=== PATIENT | male | born 1950 | race Caucasian/White ===

== ENCOUNTER 2019-06-11 12:05 | Emergency (ER) | payer MEDICARE ==
[~2019-06-11] VITALS: Ht 180.3 cm; Wt 84.6 kg
[~2019-06-11 12:05] MED LIST: ALBU8HFA PO; BUDE10.2 INH; GUAI100L97 PO; LISI-600 PO
[2019-06-11] MEDS ORDERED: ipratropium/albuterol 3ml nebule NEB ONE (13:45)
[2019-06-11] MEDS ORDERED: predniSONE 20 mg tablet PO ONE (13:45)
[2019-06-11] MEDS ORDERED: azithromycin 250mg tablet PO ONE (13:50)
[2019-06-11 14:15] LABS: BASOPHILS # (AUTO) 0.1 X10'3 (0-0.2); BASOPHILS % (AUTO) 0.8 % (0-1); EOSINOPHILS # (AUTO) 0.3 X10'3 (0-0.9); HEMATOCRIT 48.3 % (42.0-52.0); HEMOGLOBIN 16.5 g/dl (14.0-17.9); LYMPHOCYTES # (AUTO) 2.1 X10'3 (1.1-4.8); LYMPHOCYTES % (AUTO) 15.6 % (21-51); MEAN CORPUSCULAR HEMOGLOBIN 30.3 PG (27.0-31.0); MEAN CORPUSCULAR HGB CONC 34.1 g/dL (33.0-36.5); MEAN CORPUSCULAR VOLUME 88.6 FL (78-98); MEAN PLATELET VOLUME 7.6 FL (7.4-10.4); MONOCYTES # (AUTO) 1.3 X10'3 (0-0.9); MONOCYTES % (AUTO) 9.6 % (2-12); NEUTROPHILS # (AUTO) 9.7 X10'3 (1.8-7.7); PLATELET COUNT 334 X10'3 (140-440); RED BLOOD COUNT 5.45 X10'6 (4.70-6.10); RED CELL DISTRIBUTION WIDTH 14.2 % (11.5-14.5); WHITE BLOOD COUNT 13.5 X10'3 (4.5-11.0)
[2019-06-11 14:28] LABS: ALANINE AMINOTRANSFERASE 40 U/L (12-78); ALBUMIN 4.4 G/DL (3.4-5.0); ALKALINE PHOSPHATASE 165 IU/L (46-116); ANION GAP 7 (8-16); ASPARTATE AMINO TRANSFERASE 24 U/L (10-37); BILIRUBIN,TOTAL 0.6 MG/DL (0.1-1.0); BLOOD UREA NITROGEN 16 MG/DL (7-18); CHLORIDE 103 MMOL/L (99-107); CREATININE 1.07 MG/DL (0.60-1.10); GLUCOSE 103 MG/DL (70-104); POTASSIUM 4.5 MMOL/L (3.5-5.1); SODIUM 141 MMOL/L (135-145); TOTAL CARBON DIOXIDE 31.5 MMOL/L (24-32); TOTAL PROTEIN 8.9 G/DL (6.4-8.2); eGFR 69 ML/MIN
[2019-06-11] MEDS ORDERED: AZIT-72 PO (14:32)
[2019-06-11] MEDS ORDERED: ALB0.5UD IH (14:32)
[2019-06-11] MEDS ORDERED: PRED20TA PO (14:32)
[2019-06-11 15:13] VITALS: BP 170/84
== END 2019-06-11 15:14 | disposition home or self-care (01) ==
LOC: ER 12:05
DX: J44.1 Chronic obstructive pulmonary disease with (acute) exacerbation (principal); G89.29 Other chronic pain; Z87.891 Personal history of nicotine dependence; Z88.0 Allergy status to penicillin; Z98.890 Other specified postprocedural states; Z88.8 Allergy status to other drugs, medicaments and biological substances; Z79.2 Long term (current) use of antibiotics; Z79.899 Other long term (current) drug therapy
CPT/HCPCS: 36415; 71045; 80053; 83880; 84484; 85025; 93005; 94640; 99284; J7512; 94760

== ENCOUNTER 2020-08-02 12:24 | Emergency (ER) | payer MEDICARE ==
[~2020-08-02] VITALS: Ht 180.3 cm; Wt 81.8 kg
[~2020-08-02 12:24] MED LIST changes: -LISI-600 PO; +LISI20TA28 PO
[2020-08-02 12:41] VITALS: BP 143/84
[2020-08-02] MEDS ORDERED: HYDROcodone/acetaminophen 5mg/325mg tablet PO ONE (13:20)
== END 2020-08-02 13:57 | disposition home or self-care (01) ==
LOC: ER 12:24
DX: S60.212A Contusion of left wrist, initial encounter (principal); M25.532 Pain in left wrist; M79.672 Pain in left foot; M25.432 Effusion, left wrist; J44.9 Chronic obstructive pulmonary disease, unspecified; G89.29 Other chronic pain; Z98.890 Other specified postprocedural states; Z88.0 Allergy status to penicillin; Z88.5 Allergy status to narcotic agent; Z79.899 Other long term (current) drug therapy; X58.XXXA Exposure to other specified factors, initial encounter; Y93.89 Activity, other specified; Y92.89 Other specified places as the place of occurrence of the external cause; Y99.8 Other external cause status
CPT/HCPCS: 29125; 73110; 99283

== ENCOUNTER 2022-09-14 15:07 | Emergency (ER) | payer OTHER ==
[~2022-09-14] VITALS: Ht 180.3 cm; Wt 86.4 kg
[~2022-09-14 15:07] MED LIST changes: -ALBU8HFA PO; +AMIO200T67 PO; +APIX5TAB3 PO; +ASPI-611 PO; -BUDE10.2 INH; +CLOP-32 PO; -GUAI100L97 PO; -LISI20TA28 PO; +LOP25T PO; +PANT-47 PO
[2022-09-14 15:23] LABS: BASOPHILS % (AUTO) 0.2 % (0-1); EOSINOPHILS % (AUTO) 0.2 % (0-6); HEMATOCRIT 46.1 % (42.0-52.0); HEMOGLOBIN 15.4 g/dl (14.0-17.9); LYMPHOCYTES % (AUTO) 8.3 % (21-51); MEAN CORPUSCULAR HEMOGLOBIN 29.6 PG (27.0-31.0); MEAN CORPUSCULAR HGB CONC 33.4 g/dL (33.0-36.5); MEAN CORPUSCULAR VOLUME 88.8 FL (78-98); MEAN PLATELET VOLUME 7.5 FL (7.4-10.4); MONOCYTES # (AUTO) 1.8 X10'3 (0-0.9); MONOCYTES % (AUTO) 14.8 % (2-12); NEUTROPHILS # (AUTO) 9.1 X10'3 (1.8-7.7); NEUTROPHILS % (AUTO) 76.5 % (42-75); PLATELET COUNT 267 X10'3 (140-440); RED CELL DISTRIBUTION WIDTH 14.1 % (11.5-14.5); WHITE BLOOD COUNT 11.8 X10'3 (4.5-11.0)
[2022-09-14 15:59] LABS: ALANINE AMINOTRANSFERASE 26 U/L (12-78); ALBUMIN 3.7 G/DL (3.4-5.0); ALBUMIN/GLOBULIN RATIO 0.9 (1.1-1.5); ALKALINE PHOSPHATASE 124 IU/L (46-116); ANION GAP 11 (8-16); ASPARTATE AMINO TRANSFERASE 13 U/L (10-37); BILIRUBIN,TOTAL 0.6 MG/DL (0.1-1.0); BLOOD UREA NITROGEN 14 MG/DL (7-18); BUN/CREATININE RATIO 13.1 (10.0-20.0); CHLORIDE 102 MMOL/L (99-107); CREATININE 1.07 MG/DL (0.60-1.10); GLUCOSE 123 MG/DL (70-104); POTASSIUM 4.3 MMOL/L (3.5-5.1); SODIUM 137 MMOL/L (135-145); TOTAL CARBON DIOXIDE 24.2 MMOL/L (24-32); TOTAL PROTEIN 7.8 G/DL (6.4-8.2); eGFR 69 ML/MIN
[2022-09-14 16:08] LABS: MAGNESIUM 2.2 MG/DL (1.5-2.4)
[2022-09-14 18:45] VITALS: BP 147/103
--- NOTE | 2022-09-14 18:45 | NUR ---
PT. C/O LEFT ARM PAIN WHILE IN WAITING ROOM, EKG COMPLETED AND SEEN BY DR. MORRISON. VS DONE SEE VS
== END 2022-09-15 02:06 | disposition left against medical advice (07) ==
LOC: ER 15:07
DX: R07.9 Chest pain, unspecified (principal); Z53.21 Procedure and treatment not carried out due to patient leaving prior to being seen by health care provider
CPT/HCPCS: 36415; 71045; 80053; 83735; 83880; 84484; 85025; 93005; 99281

== ENCOUNTER 2022-11-17 00:20 | Emergency (ER) | payer MEDICARE, OTHER ==
[~2022-11-17] VITALS: Ht 180.3 cm; Wt 90.9 kg
[2022-11-17 00:44] LABS: BASOPHILS # (AUTO) 0.1 X10'3 (0-0.2); BASOPHILS % (AUTO) 0.4 % (0-1); EOSINOPHILS # (AUTO) 0.3 X10'3 (0-0.9); EOSINOPHILS % (AUTO) 1.6 % (0-6); HEMATOCRIT 45.1 % (42.0-52.0); HEMOGLOBIN 15.4 g/dl (14.0-17.9); LYMPHOCYTES # (AUTO) 1.8 X10'3 (1.1-4.8); LYMPHOCYTES % (AUTO) 10.3 % (21-51); MEAN CORPUSCULAR HEMOGLOBIN 29.9 PG (27.0-31.0); MEAN CORPUSCULAR HGB CONC 34.1 g/dL (33.0-36.5); MEAN CORPUSCULAR VOLUME 87.5 FL (78-98); MEAN PLATELET VOLUME 7.8 FL (7.4-10.4); MONOCYTES # (AUTO) 1.6 X10'3 (0-0.9); MONOCYTES % (AUTO) 9.3 % (2-12); NEUTROPHILS # (AUTO) 13.6 X10'3 (1.8-7.7); NEUTROPHILS % (AUTO) 78.4 % (42-75); PLATELET COUNT 299 X10'3 (140-440); RED BLOOD COUNT 5.15 X10'6 (4.70-6.10); RED CELL DISTRIBUTION WIDTH 14.8 % (11.5-14.5); WHITE BLOOD COUNT 17.4 X10'3 (4.5-11.0)
[2022-11-17 00:55] LABS: ALANINE AMINOTRANSFERASE 25 U/L (12-78); ALBUMIN 3.8 G/DL (3.4-5.0); ALKALINE PHOSPHATASE 140 IU/L (46-116); ANION GAP 10 (8-16); ASPARTATE AMINO TRANSFERASE 21 U/L (10-37); BILIRUBIN,TOTAL 0.7 MG/DL (0.1-1.0); BLOOD UREA NITROGEN 10 MG/DL (7-18); BUN/CREATININE RATIO 10.3 (10.0-20.0); CALCIUM 8.8 MG/DL (8.5-10.1); CHLORIDE 102 MMOL/L (99-107); CREATININE 0.97 MG/DL (0.60-1.10); GLUCOSE 133 MG/DL (70-104); POTASSIUM 4.3 MMOL/L (3.5-5.1); SODIUM 134 MMOL/L (135-145); TOTAL CARBON DIOXIDE 22.4 MMOL/L (24-32); TOTAL PROTEIN 7.5 G/DL (6.4-8.2); eGFR 77 ML/MIN
[2022-11-17] MEDS ORDERED: ipratropium/albuterol 3ml nebule NEB STA (01:02)
--- NOTE | 2022-11-17 01:04 | NUR ---
PT O2 SATS ADEQUATE FOR COPD, HOWEVER PT REQUESTING NC. PT PLACED ON 2L NC FOR COMFORT. SPO2 IMPROVED FROM 92-94%. BREATHING TX ORDERED PER
[2022-11-17] MEDS ORDERED: methylPREDNISolone sod succ 125mg/2ml vial IV ONE (02:40)
[2022-11-17] MEDS ORDERED: CefTRIAXone/D5W-Rocephin 1gm 50 ML IV ONE (02:40)
[2022-11-17] MEDS ORDERED: ipratropium 0.5 MG/2.5ML nebule IH PRN (02:40)
[2022-11-17] MEDS ORDERED: albuterol 2.5 MG/3 ML nebule CONTNEB PRN (02:40)
[2022-11-17] MEDS ORDERED: azithromycin 250mg tablet PO ONE (02:40)
[2022-11-17] MEDS ORDERED: normal saline 1000ML IV soln IVB ONE (02:40)
[2022-11-17] MEDS ORDERED: ondansetron/PF 4mg/2ml inj IV ONE (02:55)
[2022-11-17 02:58] LABS: D-DIMER 0.46 MG/L FEU (0-0.50)
[2022-11-17] MEDS ORDERED: ALBU8HFA PO (04:53)
[2022-11-17] MEDS ORDERED: AZIT-164 PO (04:53)
[2022-11-17] MEDS ORDERED: PRED20TA PO (04:53)
[2022-11-17 05:07] VITALS: BP 150/68
== END 2022-11-17 05:08 | disposition home or self-care (01) ==
LOC: ER 00:21
DX: J98.01 Acute bronchospasm (principal); G89.29 Other chronic pain; J44.9 Chronic obstructive pulmonary disease, unspecified; M54.9 Dorsalgia, unspecified; Z88.0 Allergy status to penicillin; Z88.5 Allergy status to narcotic agent; Z79.899 Other long term (current) drug therapy
CPT/HCPCS: 36415; 71045; 80053; 83880; 84484; 85025; 85379; 93005; 94640; 94644; 96365; 96375; 99285; J0696; J2930; J7030; 94760; A7015

== ENCOUNTER → 2023-11-28 | Outpatient (CLI) | payer MEDICARE ==
[2023-11-28] VITALS (23 sets, daily range): BP systolic 116–152; BP diastolic 58–78; PULSE 66–90
[~2023-11-28] MED LIST changes: -AMIO200T67 PO; +AMLO1TAB14 PO; -APIX5TAB3 PO; +APIX5TAB5 PO; -ASPI-611 PO; -CLOP-32 PO; -LOP25T PO; +METO25TA6 PO; -PANT-47 PO; +PROP225C9 PO
== END | disposition home or self-care (01) ==
LOC: CARD DIAG 12:01
PROVIDERS: ATTEND Internal Medicine Interventional Cardiology
DX: R55 Syncope and collapse (principal)
CPT/HCPCS: 93660

== ENCOUNTER 2024-10-30 07:47 | Inpatient (IN) | payer MEDICARE, MEDICAID ==
[2024-10-30] VITALS (8 sets, daily range): BP systolic 169; BP diastolic 91; PULSE 89–96; RESP 18–24; TEMP 97.5; O2SAT 92–98
[~2024-10-30] VITALS: Ht 180.3 cm; Wt 87.8 kg
[~2024-10-30 07:47] MED LIST changes: +PROP225C24 PO; -PROP225C9 PO
--- NOTE | 2024-10-30 07:59 | ELECTROCARDIOGRAPH REPORT ---
[facility] Test Date: 2024-10-30 Test Time: 07:56:06 Pat Name: EVITA MOTT Department: [facility]- Patient ID: [facility]-[id number] Room: [place] [id number] Gender: M Greens Planter: [place]RB[place] : 1950 Requested By: PRICILA JESSICA Order Number: [id number] Reading MD: Dr. Matthew Thompson Measurements Intervals [place] Rate: 118 P: 80 MT: 159 QRS: -73 QRSD: 91 T: 83 QT: 333 QTc: 467 Interpretive Statements Sinus tachycardia Right atrial enlargement Abnormal R-wave progression, late transition Probable inferior infarct, old Artifact in lead(s) I,II Electronically Signed On 11-02-2024 13:44:[address] Matthew Thompson Please click the below link to view image of tracing.
[2024-10-30 08:10] LABS: BASOPHILS % (AUTO) 0.4 % (0-1); EOSINOPHILS # (AUTO) 0.4 X10'3 (0-0.9); EOSINOPHILS % (AUTO) 3.1 % (0-6); HEMATOCRIT 45.9 % (42.0-52.0); HEMOGLOBIN 15.5 g/dl (14.0-17.9); LYMPHOCYTES # (AUTO) 1.6 X10'3 (1.1-4.8); LYMPHOCYTES % (AUTO) 13.3 % (21-51); MEAN CORPUSCULAR HEMOGLOBIN 29.1 PG (27.0-31.0); MEAN CORPUSCULAR HGB CONC 33.7 g/dL (33.0-36.5); MEAN CORPUSCULAR VOLUME 86.3 FL (78-98); MEAN PLATELET VOLUME 7.7 FL (7.4-10.4); MONOCYTES # (AUTO) 1.2 X10'3 (0-0.9); MONOCYTES % (AUTO) 9.9 % (2-12); NEUTROPHILS # (AUTO) 9.1 X10'3 (1.8-7.7); NEUTROPHILS % (AUTO) 73.3 % (42-75); PLATELET COUNT 326 X10'3 (140-440); RED BLOOD COUNT 5.31 X10'6 (4.70-6.10); RED CELL DISTRIBUTION WIDTH 14.2 % (11.5-14.5); WHITE BLOOD COUNT 12.4 X10'3 (4.5-11.0)
[2024-10-30 08:27] LABS: APTT 34 SECONDS (22-32); INR 1.1 INR; PROTHROMBIN TIME 11.5 SECONDS (9.0-12.0)
[2024-10-30 08:30] LABS: ALANINE AMINOTRANSFERASE 20 U/L (12-78); ALBUMIN 3.8 G/DL (3.4-5.0); ALBUMIN/GLOBULIN RATIO 0.9 (1.1-1.5); ALKALINE PHOSPHATASE 169 IU/L (46-116); ANION GAP 11 (8-16); ASPARTATE AMINO TRANSFERASE 20 U/L (10-37); BILIRUBIN,TOTAL 0.7 MG/DL (0.1-1.0); BLOOD UREA NITROGEN 12 MG/DL (7-18); CALCIUM 8.9 MG/DL (8.5-10.1); CHLORIDE 100 MMOL/L (99-107); GLUCOSE 160 MG/DL (70-104); POTASSIUM 4.1 MMOL/L (3.5-5.1); SODIUM 135 MMOL/L (135-145); TOTAL CARBON DIOXIDE 24.5 MMOL/L (24-32); TOTAL PROTEIN 7.9 G/DL (6.4-8.2); eCRCL 71 ML/MIN; eGFR 73 ML/MIN
[2024-10-30 08:44] LABS: PRO BRAIN NATRIURETIC PEPTIDE 408 PG/ML (0-125)
[2024-10-30] MEDS: ipratropium/albuterol 3ml nebule NEB ONE (09:15)
[2024-10-30] MEDS ORDERED: ROSU20TA98 PO (09:53)
--- NOTE | 2024-10-30 11:27 | Physician Documentation ---
History of Present Illness ~ Chief Complaint: Chest Pain Stated Complaint: CHEST PAIN/DIZZINESS/WEAKNESS/SOB Time Seen by MD: 10:06 Primary Medical Doctor: KENROY Source: family Mode of Arrival: Ambulatory HPI 74-year-old male history of COPD, chronic substance use, HFpEF, PVD status post subclavian stent, CAD, AFib on Eliquis, uncontrolled hypertension, chronic pain presenting for shortness of breath and cough ongoing over the last 24 hours. Also reports chest pain with deep breathing Medication Reconciliation Allergies: Coded Allergies: Penicillins (Verified Allergy, Unknown, 05/02/22) codeine (Verified Allergy, Unknown, 05/02/22) Scheduled Amlodipine/Valsartan (Exforge 5-320 Mg Tablet), 1 TAB PO DAILY, (Reported) Apixaban (Eliquis), 1 TAB PO UD, (Reported) Metoprolol Tartrate (Metoprolol Tartrate), 1 TAB PO Q12H, (Reported) Propafenone Hcl (Propafenone Hcl), 1 CAP PO Q12H, (Reported) Rosuvastatin Calcium (Rosuvastatin Calcium), 1 TAB PO HS, (Reported) Past Medical History Past Medical History: Coronary Artery Disease, COPD, Pneumonia, Chronic Back Pain Past Surgical History: angioplasty, orthopedic surgeries Alcohol Use: None Drug Use: none Lives with: Family Lives In: Home Occupation: retired Review of Systems All Other Systems at this time: Reviewed and Negative Constitutional: Denies: fever Physical Exam Vital Signs: Temperature: 99.1, Source: Temporal, Heart Rate: 87, Respiratory Rate: 19, BP: 153/73, Pulse Oximetry: 92, Weight: 87.850 Oxygen Flow Rate: 0 Physical Exam Nontoxic Mild respiratory distress Diffuse expiratory wheezes No JVD no murmur no lower extremity edema abdomen is soft nontender Neuro awake alert oriented Skin pink warm dry Progress Progress Note Labs independently interpreted by myself shows no elevation in troponin Consulted hospitalist Service who agree with management plan and graciously accept for admission Results/Orders Reviewed/noted all lab results: Yes Results/Orders Orders - PRICILA JESSICA MD Chest,Single View (10/30/24 07:52) Monitor (10/30/24 07:52) Saline Lock (10/30/24 07:52) Oxygen (10/30/24 07:52) Svn Treatment (10/30/24 ) Page Hospitalist (10/30/24 11:58) Fill Out Med Reconciliation (10/30/24 11:58) Completed Orders - PRICILA JESSICA MD Chest,Single View (10/30/24 07:52) Cbc/Diff (10/30/24 07:52) PBNP (10/30/24 07:52) Electrocardiogram (10/30/24 07:52) CMP (10/30/24 07:52) Hs Troponin I W Calculations (10/30/24 07:52) Hs Troponin I W Calculations (10/30/24 09:52) Hs Troponin I W Calculations (10/30/24 10:52) PTT (10/30/24 08:06) Pt Inr (10/30/24 08:06) Ipratropium/Albuterol Nebule (Ipratrop/A (10/30/24 08:55) Albuterol 2.5mg/3ml Nebule (Proventil 2. (10/30/24 12:00) * Rt Notification Q1H (10/30/24 11:58) Methylprednisolone Sod Succ (Solumedrol (10/30/24 12:00) Vital Signs 10/30/24 10/30/24 10/30/24 10/30/24 08:03 09:16 09:16 09:43 Temp 99.1 Pulse 116 90 93 87 Resp 18 18 20 19 B/P (MAP) 157/81 153/73 (99) Pulse Ox 93 92 93 92 O2 Delivery Room Air* Room Air* O2 Flow Rate 0 0 0 FiO2 N/A N/A 10/30/24 11:37 Temp 98.2 Pulse 86 Resp 24 B/P (MAP) 169/77 (107) Pulse Ox 92 O2 Flow Rate 0 Laboratory Tests Test 10/30/24 07:59 10/30/24 10:04 10/30/24 11:04 White Blood Count 12.4 H Red Blood Count 5.31 Hemoglobin 15.5 Hematocrit 45.9 Mean Corpuscular Volume 86.3 Mean Corpuscular Hemoglobin 29.1 Mean Corpuscular Hemoglobin Concent 33.7 Red Cell Distribution Width 14.2 Platelet Count 326 Mean Platelet Volume 7.7 Neutrophils (%) (Auto) 73.3 Lymphocytes (%) (Auto) 13.3 L Monocytes (%) (Auto) 9.9 Eosinophils (%) (Auto) 3.1 Basophils (%) (Auto) 0.4 Neutrophils # (Auto) 9.1 H Lymphocytes # (Auto) 1.6 Monocytes # (Auto) 1.2 H Eosinophils # (Auto) 0.4 Basophils # (Auto) 0.0 CBC Comment Prothrombin Time 11.5 INR International Normalized Ratio 1.1 Activated Partial Thromboplast Time 34 H Coagulation Comments Sodium Level 135 Potassium Level 4.1 Chloride Level 100 Carbon Dioxide Level 24.5 Anion Gap 11 Blood Urea Nitrogen 12 Creatinine 1.00 Estimated GFR/1.73 m2 73 BUN/Creatinine Ratio 12.0 Glucose Level 160 H Calcium Level 8.9 Total Bilirubin 0.7 Aspartate Amino Transf (AST/SGOT) 20 Alanine Aminotransferase (ALT/SGPT) 20 Alkaline Phosphatase 169 H Troponin I High Sensitivity 10 9 10 Pro-B-Type Natriuretic Peptide 408 H Total Protein 7.9 Albumin 3.8 Globulin 4.1 Albumin/Globulin Ratio 0.9 L Chemistry Comments Troponin I High Sens Percent Delta 10 11 Troponin I Hi Sens Absolute Change -1 1 EKG/XRAY/CT/US/VASC/MRI EKG : Additional Comment EKG independently interpreted by myself time 7:56 a.m. indication chest pain sinus tachycardia rate 118 left axis deviation no ST or T-wave abnormalities Chest X-Ray : Additional Comments Chest x-ray independently interpreted by myself shows no pneumothorax no consolidation normal cardiomediastinal silhouette Heart Score: Heart Score Response (Comments) Value History Slightly Suspicious 0 EKG Normal 0 Age >65 2 Risk Factors 1 or 2 risk factors 1 Troponin Normal limit 0 Total 3 Medical Decision Making Additional info obtained from: old records Findings Reviewed discharge summary May 2023 COPD exacerbation, chronic substance abuse, HFpEF, PVD subclavian stent insertion CAD AFib on Eliquis uncontrolled hypertension chronic pain Additional Information COPD, CHF, CAD other causes of chest pain Departure Disposition: ADMITTED INPATIENT Admitted to Inpatient Unit: to hospitalist Impression: Primary Impression: COPD with acute exacerbation Referrals: NO PRIMARY CARE PROVIDER (PCP) Signature Scribe Signature: No scribe Attestation: No scribe PRICILA JESSICA MD October 30, 2024 11:27
[2024-10-30] MEDS ORDERED: acetaminophen 325mg tablet PO PRN (12:40)
[2024-10-30] MEDS ORDERED: ondansetron/PF 4mg/2ml inj IV PRN (12:40)
[2024-10-30] MEDS ORDERED: magnesium sulf-water 4G/100mL 100 ML IV PRN (12:40)
[2024-10-30] MEDS ORDERED: potassium Cl 40MEQ/1/2NS 520ml 520 ML IV PRN (12:40)
[2024-10-30] MEDS ORDERED: magnesium hydroxide 30ml (MOM) UD suspension PO PRN (12:40)
[2024-10-30] MEDS ORDERED: mag hydrox/Alum hydrox/simeth 30ml oral suspension PO PRN (12:40)
[2024-10-30] MEDS ORDERED: magnesium sulf-water 2g/50mL 50 ML IV PRN (12:40)
[2024-10-30] MEDS ORDERED: potassium Cl 20 mEq SR tablet PO PRN ×2 (12:40)
[2024-10-30] MEDS ORDERED: ipratropium/albuterol 3ml nebule NEB PRN (12:45)
[2024-10-30] MEDS: methylPREDNISolone sod succ 125mg/2ml vial IV ONE (13:08)
[2024-10-30] MEDS: CefTRIAXone/D5W-Rocephin 1gm 50 ML IV ONE (13:09)
[2024-10-30] MEDS: azithromycin/NS 500mg/250ml 250 ML IV ONE (13:09)
[2024-10-30] MEDS: normal saline 500ml IV soln 500 ML IV ONE (13:09)
[2024-10-30] MEDS ORDERED: iohexol 350MG/ML 100ml bottle IV ONE (13:45)
--- NOTE | 2024-10-30 14:04 | HISTORY AND PHYSICAL ---
History & Physical Providers to CC ~ History of Present Illness Reason for Admit\Complaint: Acute COPD exacerbation History of Present Illness Bg Disla is a 74-year-old male with past medical history of COPD, CAD s/p cardiac stent, hypertension, atrial fibrillation who presented to the ED with chief complaint of progressively worsening shortness of breath x 2 days. Patient reports chest pain with coughing but denies exertional chest pain or chest pain at rest, palpitations, abdominal pain, n/v/d. Initial diagnostic findings were notable for mild leukocytosis, sinus tachycardia, and hypoxia. Patient is to be admitted for further workups and treatment. Allergies: Coded Allergies: Penicillins (Verified Allergy, Unknown, 05/02/22) codeine (Verified Allergy, Unknown, 05/02/22) Home Medications Home Medications Active Reported Rosuvastatin Calcium 20 Mg Tablet 1 Tab PO HS 30 Days Exforge 5-320 Mg Tablet (Amlodipine/Valsartan) 1 Each Tablet 1 Tab PO DAILY 30 Days Eliquis (Apixaban) 5 Mg (74 Tabs) Tab.ds.pk 1 Tab PO UD 30 Days Metoprolol Tartrate 25 Mg Tablet 1 Tab PO Q12H 30 Days Propafenone Hcl 225 Mg Cap.er.12h 1 Cap PO Q12H 30 Days Past Medical History Past Medical History COPD CAD Atrial fibrillation Hypertension Tobacco abuse Past Surgical History Surgical History Comment s/p cardiac stent Past Social History Social History Comment Alcohol: Denies Tobacco: Former smoker, quit 2 years ago, 58 pack year cigarette smoking history Illicit drug use: Denies Situation: Lives at home with the spouse ROS ROS Other than positives in HPI, all 14 review of systems are negative Exam Vitals: Vital Signs Date Time Temp Pulse Resp B/P (MAP) Pulse Ox O2 Delivery O2 Flow Rate FiO2 10/30/24 12:56 85 22 165/80 (108) 91 10/30/24 11:37 98.2 0 10/30/24 09:16 Room Air* N/A General: Generalized weakness, A&Ox 3, NAD HEENT: Normocephalic, PERRLA Neck: Supple, trachea midline, no JVD Chest: Rhonchi b/l upper and lower lungs Cardiovascular: RRR, S1&S2 Abdomen: Soft and nontender Extremities: No cyanosis/clubbing/or edema Central Nervous System: CN II-XII intact, no focal deficits Musculoskeletal: No paraspinal muscle tenderness, no muscle spasm Skin: Warm and intact Diagnostic Data Last Recorded Lab Results: 10/30/24 0759 10/30/24 0759 Diagnostic Data: Laboratory Tests Test 10/30/24 07:59 Prothrombin Time 11.5 SECONDS (9.0-12.0) INR International Normalized Ratio 1.1 INR Activated Partial Thromboplast Time 34 SECONDS (22-32) H Coagulation Comments Additional Plan # Acute COPD exacerbation # Acute hypoxic respiratory failure 2/2 COPD exacerbation -EKG sinus tachycardia at 118bpm no ST-T abnormalities, CTA chest negative -start abx, steroid, bronchodilator, supplemental oxygen # Atrial fibrillation, CVR # CAD s/p cardiac stent, 1 month ago # HTN -Eliquis, metoprolol, aspirin, statin, statin, prn hydralazine -follow TTE DVT/VTE Prophylaxis: Eliquis Code Status: Full Code I spent a total of 35 minutes discussing Advanced Care Planning measures with the patient. Advance care planning: Discussed with patient the importance of advance care planning in case of emergent situation. We discussed various resuscitative measures/ ACP with the patient at the time of admission. Patient voiced understanding and patient has decided on a full code status Date of Service: October 30, 2024 Billing Provider: GRABIEL BUTTERFIELD Common Visit Codes: 64363-[id number] INP/OBS CARE (HIGH) Secondary Visit Codes: 49483-[id number] CARE PLAN 30 MINUTES GRABIEL BUTTERFIELD October 30, 2024 14:04
[2024-10-30] MEDS ORDERED: albuterol 2.5 MG/3 ML nebule NEB PRN (14:10)
[2024-10-30] MEDS: ipratropium/albuterol 3ml nebule NEB SCH (14:10)
[2024-10-30] MEDS: albuterol 2.5 MG/3 ML nebule CONTNEB ONE (14:17)
[2024-10-30] MEDS: PERFLUTREN PROTEIN-A MICROSPHR (Optison) 0.22 MG/ML 3ML VIAL IV ONE (14:27)
[2024-10-30] MEDS: clopidogrel 75mg tablet PO ONE (14:40)
--- NOTE | 2024-10-30 15:32 | RADIOLOGY REPORT ---
PROCEDURE: CT CTA CHEST PE W/ IV CONTRAST 10/30/2024 01:58 PM INDICATION: hyopxia, tachycardia, chest pain COMPARISON: CTA CHEST on DOS: 05/03/22 TECHNIQUE: Coverage: Thorax IV contrast: Administered Phases: Arterial Multiplanar 3-D Maximum Intensity Projection images (MIP) reconstructions were created by the technuday blackburn in the coronal and sagittal planes as part of the CT angiography protocol. Adverse events: None Medication laboratory values were reviewed to verify the patient meets criteria for contrast administ ration. All CT scans at this medical facility are performed using dose modulation techniques as appropriate t o a performed exam including the following: Automated exposure control was utilized; adjustment of th e MA and/or KV according to patient size; and use of iterative reconstruction technique. Radiation dose: CTDIvol 27, 18 mGy, DLP 732.5 mGy*cm. FINDINGS: Cardiovascular: No evidence of acute or chronic pulmonary emboli identified. Aorta is normal in calib er with a Scattered calcified plaques noted. A patent stent is seen in the proximal left subclavian a rtery. The heart is normal in size. Lungs: No focal consolidation. No pleural effusion. No pneumothorax. The airways are patent. Thyroid: Unremarkable. Esophagus: Unremarkable. Lymphatics: A 2.1 cm calcified lymph node is seen in subcarinal region on the medial aspect of the ri ght lower lobe bronchus Bones/soft tissues: No acute abnormality. Upper abdomen: No acute abnormality. Cholelithiasis with no evidence of cholecystitis. Few subcentime ter calcified granulomas noted in the liver and spleen. Other: None. IMPRESSION: 1. No pulmonary emboli, aortic aneurysm or dissection. The left subclavian stent is patent. 2. No acute cardiopulmonary disease. 3. Evidence of an old granulomatous disease subcarinal calcified lymph node and several subcentimeter hepatic splenic calcified granulomas.
[2024-10-30] MEDS: methylPREDNISolone sod succ 125mg/2ml vial IV SCH ×2 (16:00→20:42)
[2024-10-30] MEDS: aspirin 81mg, enteric-coated 1 TAB TABLET.DR PO ONE (16:02)
--- NOTE | 2024-10-30 17:33 | CARDIOLOGY REPORT ---
APPROVED REPORT EXAM: Comprehensive 2D, Doppler, and color-flow Echocardiogram. 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 144.6 cm/s AoV VTI 30.0 cm AO Peak GR. 8.4 mmHg AO Mean GR. 4 mmHg LVOT VTI 26.39 cm LVOT Peak Anand. 130.2 cm/s JOSE MANUEL(VTI)/BSA 2.87 cm2/m2 JOSE MANUEL (VTI) 2.87 cm2 Mitral Valve MV E Velocity 91.1 cm/s MV Peak Gr. 6 mmHg MV DECEL TIME 192 ms MV A Velocity 102.7 cm/s MV PHT 52 ms E/A Ratio 0.9 MVA (PHT) 4.23 cm2 MV IUjc577.5 cm/s TDI Medial E' P. V 10.47 cm/s E/Medial E' 8.7 Tricuspid Valve RAP ESTIMATE 10 mmHg Pulmonary Vein S1 Velocity 50.9 cm/s D2 Velocity 49.8 cm/s PVa Bsuehpfv41.8 cm/s PVa [id number] msec LEFT VENTRICLE Normal LV size and wall thickness. Overall systolic function is normal. LVEF is 65-70%. RIGHT VENTRICLE RV is normal size and function. ATRIA Left atrium is mildly dilated. AORTIC VALVE Trileaflet AV appears sclerotic without stenosis. No insufficiency. MITRAL VALVE MV is thickened with mild annular thickening and no stenosis. Trace mitral regurgitation. TRICUSPID VALVE The tricuspid valve is normal in structure. Trace tricuspid regurgitation. PULMONIC VALVE The pulmonary valve is normal in structure. Trace pulmonic regurgitation. GREAT VESSELS The aortic root is normal in size. The IVC is normal in size and collapses >50% with inspiration. PERICARDIUM There is no pericardial effusion. Other Information Study Quality: Adequate Conclusion Normal LV size and wall thickness. Overall systolic function is normal. LVEF is 65-70%. RV is normal size and function. Left atrium is mildly dilated. Trileaflet AV appears sclerotic without stenosis. No insufficiency. MV is thickened with mild annular thickening and no stenosis. Trace mitral regurgitation. The tricuspid valve is normal in structure. Trace tricuspid regurgitation. The pulmonary valve is normal in structure. Trace pulmonic regurgitation. There is no pericardial effusion.
[2024-10-30] MEDS: K and/or MAG REPLACEMENT MC SCH (20:00)
[2024-10-30] MEDS: docusate sod 100mg capsule PO SCH (20:00)
[2024-10-30] MEDS ORDERED: methylPREDNISolone sod succ 125mg/2ml vial IV SCH (20:00)
[2024-10-30] MEDS: atorvastatin 20mg tablet PO SCH (20:41)
[2024-10-30] MEDS: apixaban 5mg tablet PO SCH (20:41)
[2024-10-31] VITALS (19 sets, daily range): BP systolic 116–175; BP diastolic 58–86; PULSE 74–117; RESP 15–20; TEMP 98–98.3; O2SAT 92–94
[2024-10-31 06:34] LABS: MAGNESIUM 2.4 MG/DL (1.5-2.4); POTASSIUM 3.8 MMOL/L (3.5-5.1)
[2024-10-31] MEDS: CefTRIAXone/D5W-Rocephin 1gm 50 ML IV SCH (09:17)
[2024-10-31 09:19] LABS: BASOPHILS % (AUTO) 0.3 % (0-1); EOSINOPHILS % (AUTO) 0 % (0-6); HEMATOCRIT 43.9 % (42.0-52.0); HEMOGLOBIN 14.6 g/dl (14.0-17.9); LYMPHOCYTES # (AUTO) 1.1 X10'3 (1.1-4.8); LYMPHOCYTES % (AUTO) 9.3 % (21-51); MEAN CORPUSCULAR HEMOGLOBIN 28.9 PG (27.0-31.0); MEAN CORPUSCULAR HGB CONC 33.2 g/dL (33.0-36.5); MEAN PLATELET VOLUME 8.2 FL (7.4-10.4); MONOCYTES # (AUTO) 0.2 X10'3 (0-0.9); MONOCYTES % (AUTO) 1.5 % (2-12); NEUTROPHILS # (AUTO) 10.1 X10'3 (1.8-7.7); NEUTROPHILS % (AUTO) 88.9 % (42-75); PLATELET COUNT 306 X10'3 (140-440); RED BLOOD COUNT 5.05 X10'6 (4.70-6.10); RED CELL DISTRIBUTION WIDTH 14.2 % (11.5-14.5); WHITE BLOOD COUNT 11.4 X10'3 (4.5-11.0)
[2024-10-31] MEDS: azithromycin/NS 500mg/250ml 250 ML IV SCH (09:19)
[2024-10-31] MEDS: aspirin 81mg, enteric-coated 1 TAB TABLET.DR PO SCH (09:21)
[2024-10-31] MEDS: metoprolol succinate 25mg (24-HOUR) SR. Tablet PO SCH (09:21)
[2024-10-31] MEDS: clopidogrel 75mg tablet PO SCH (09:21)
[2024-10-31] MEDS: amLODIPine 5mg tablet PO SCH (09:22)
[2024-10-31] MEDS: losartan 50mg tablet PO SCH (09:22)
[2024-10-31 09:35] LABS: ALANINE AMINOTRANSFERASE 17 U/L (12-78); ALBUMIN 3.3 G/DL (3.4-5.0); ALBUMIN/GLOBULIN RATIO 0.8 (1.1-1.5); ALKALINE PHOSPHATASE 142 IU/L (46-116); ANION GAP 8 (8-16); ASPARTATE AMINO TRANSFERASE 12 U/L (10-37); BILIRUBIN,TOTAL 0.4 MG/DL (0.1-1.0); BLOOD UREA NITROGEN 15 MG/DL (7-18); BUN/CREATININE RATIO 20.5 (10.0-20.0); CHLORIDE 105 MMOL/L (99-107); CREATININE 0.73 MG/DL (0.60-1.10); GLUCOSE 168 MG/DL (70-104); POTASSIUM 3.7 MMOL/L (3.5-5.1); SODIUM 137 MMOL/L (135-145); TOTAL CARBON DIOXIDE 23.7 MMOL/L (24-32); TOTAL PROTEIN 7.2 G/DL (6.4-8.2); eCRCL 97 ML/MIN; eGFR > 90 ML/MIN
--- NOTE | 2024-10-31 12:27 | RADIOLOGY REPORT ---
CHEST RADIOGRAPH Indication: CP Technique: Single frontal view of the chest was obtained COMPARISON: DI CHEST,SINGLE VIEW on DOS: 05/23/23, CHEST,SINGLE VIEW on DOS: 11/17/22, CHEST,SINGLE EW on DOS: 09/14/22, CHEST,SINGLE VIEW on DOS: 05/02/22, CHEST,SINGLE VIEW on DOS: 06/11/19 FINDINGS: Lines and Tubes: None Lungs: Clear Pleura: No effusion. No pneumothorax. Cardiomediastinal contours: Unremarkable Bones: Unremarkable IMPRESSION: No acute disease.
--- NOTE | 2024-10-31 13:05 | PROGRESS NOTE ---
Daily Progress Note Providers to CC ~ Antibiotic Timeout Antibiotic Ordered?: Yes Subjective No acute events overnight. Patient examined at bedside. No new complaints, not in acute distress. Patient reports improving shortness of breath, denies chest pain, palpitations, abdominal pain, n/v/d. Hypertensive, antihypertensive regimen changed. Labs unremarkable. Objective Vital Signs Date Time Temp Pulse Resp B/P (MAP) Pulse Ox O2 Delivery O2 Flow Rate FiO2 10/31/24 11:53 88 18 Room Air 0.0 10/31/24 11:45 93 21 10/31/24 10:00 98.3 175/86 (115) Result Diagram: 10/31/24 0846 10/31/24 0846 Physical Exam General: Generalized weakness, A&Ox 3, NAD HEENT: Normocephalic, PERRLA Neck: Supple, trachea midline, no JVD Chest: Rhonchi b/l upper and lower lungs Cardiovascular: RRR, S1&S2 Abdomen: Soft and nontender Extremities: No cyanosis/clubbing/or edema Central Nervous System: CN II-XII intact, no focal deficits Musculoskeletal: No paraspinal muscle tenderness, no muscle spasm Skin: Warm and intact Coagulation Studies Laboratory Tests Test 10/30/24 07:59 Prothrombin Time 11.5 SECONDS (9.0-12.0) INR International Normalized Ratio 1.1 INR Activated Partial Thromboplast Time 34 SECONDS (22-32) H Coagulation Comments Problem\Assessment\Plan # Acute COPD exacerbation # Acute hypoxic respiratory failure 2/2 COPD exacerbation -EKG sinus tachycardia at 118bpm no ST-T abnormalities, CTA chest negative -start abx, steroid, bronchodilator, supplemental oxygen # Atrial fibrillation, CVR # CAD s/p cardiac stent, 1 month ago # HTN -Eliquis, metoprolol, aspirin, statin, statin, prn hydralazine -follow TTE -10/31: dc metoprolol succ, start metoprolol tart, place tele -start oral hydralazine, amlodipine, losartan DVT/VTE Prophylaxis: Eliquis Code Status: Full Code Date of Service: October 31, 2024 Billing Provider: GRABIEL BUTTERFIELD Common Visit Codes: [id number] INP/OBS CARE(HIGH) GRABIEL BUTTERFIELD October 31, 2024 13:05
[2024-10-31] MEDS: hydrALAZINE 20mg/ml inj. IV PRN (13:10)
[2024-10-31] MEDS: hyDRALAzine 10mg tablet PO SCH (15:58)
[2024-10-31] MEDS: LORazepam 0.5 MG tablet PO ONE (20:07)
[2024-10-31] MEDS: metoprolol tartrate 50mg tablet PO SCH (20:08)
[2024-11-01] VITALS (7 sets, daily range): BP systolic 135–144; BP diastolic 56–69; PULSE 61–77; RESP 16–18; TEMP 97.5–97.8; O2SAT 92–95
[2024-11-01 06:45] LABS: BASOPHILS % (AUTO) 0 % (0-1); EOSINOPHILS % (AUTO) 0 % (0-6); HEMATOCRIT 41.5 % (42.0-52.0); HEMOGLOBIN 13.8 g/dl (14.0-17.9); LYMPHOCYTES # (AUTO) 1.2 X10'3 (1.1-4.8); LYMPHOCYTES % (AUTO) 6.3 % (21-51); MEAN CORPUSCULAR HEMOGLOBIN 28.8 PG (27.0-31.0); MEAN CORPUSCULAR HGB CONC 33.2 g/dL (33.0-36.5); MEAN CORPUSCULAR VOLUME 86.6 FL (78-98); MEAN PLATELET VOLUME 8.3 FL (7.4-10.4); MONOCYTES # (AUTO) 0.4 X10'3 (0-0.9); MONOCYTES % (AUTO) 2.4 % (2-12); NEUTROPHILS # (AUTO) 16.9 X10'3 (1.8-7.7); NEUTROPHILS % (AUTO) 91.3 % (42-75); PLATELET COUNT 331 X10'3 (140-440); RED CELL DISTRIBUTION WIDTH 14.4 % (11.5-14.5); WHITE BLOOD COUNT 18.5 X10'3 (4.5-11.0)
[2024-11-01 07:00] LABS: ALANINE AMINOTRANSFERASE 21 U/L (12-78); ALBUMIN 3.1 G/DL (3.4-5.0); ALBUMIN/GLOBULIN RATIO 0.9 (1.1-1.5); ALKALINE PHOSPHATASE 119 IU/L (46-116); ANION GAP 10 (8-16); ASPARTATE AMINO TRANSFERASE 18 U/L (10-37); BILIRUBIN,TOTAL 0.3 MG/DL (0.1-1.0); BLOOD UREA NITROGEN 23 MG/DL (7-18); BUN/CREATININE RATIO 25.8 (10.0-20.0); CALCIUM 8.4 MG/DL (8.5-10.1); CHLORIDE 104 MMOL/L (99-107); CREATININE 0.89 MG/DL (0.60-1.10); GLUCOSE 140 MG/DL (70-104); MAGNESIUM 2.3 MG/DL (1.5-2.4); POTASSIUM 3.8 MMOL/L (3.5-5.1); SODIUM 138 MMOL/L (135-145); TOTAL CARBON DIOXIDE 24.5 MMOL/L (24-32); TOTAL PROTEIN 6.5 G/DL (6.4-8.2); eCRCL 80 ML/MIN; eGFR 84 ML/MIN
[2024-11-01] MEDS: losartan 50mg tablet PO SCH (09:07)
[2024-11-01] MEDS ORDERED: CLOP75TA34 PO (10:03)
[2024-11-01] MEDS ORDERED: PRED10TA23 PO (10:03)
[2024-11-01] MEDS ORDERED: NOR5T PO ×2 (10:03→15:45)
[2024-11-01] MEDS ORDERED: FLUT1DIS4 INH (10:03)
[2024-11-01] MEDS ORDERED: AMOX-419 PO (10:03)
[2024-11-01] MEDS ORDERED: hyDRALAzine tablet PO (10:03)
[2024-11-01] MEDS ORDERED: LOSA50TA64 PO (10:03)
[2024-11-01] MEDS ORDERED: ALBU18HF2 INH (10:03)
[2024-11-01] MEDS ORDERED: [UNRECOGNIZED DRUG - CODE] PO (15:46)
--- NOTE | 2024-11-01 15:55 | DISCHARGE SUMMARY ---
Discharge Summary Providers to ~ Discharge Summary Admission Diagnosis: acute copd exacerbation Hospital Course DATE OF ADMISSION: 10/30/24 DATE OF DISCHARGE: 11/01/24 Discharge Diagnosis\Comment: Acute COPD exacerbation Acute hypoxic respiratory failure 2/2 COPD exacerbation Atrial fibrillation, CVR CAD s/p cardiac stent, 1 month ago HTN Operations\Procedures: None Consultants: None Complications: None Condition on DC: Stable New Medications: Albuterol Sulfate (Ventolin Hfa) 90 Mcg Hfa.aer.ad 2 PUFFS INH Q4HPRN PRN for wheezing for 30 Days, #18 GM 0 Refills Cefdinir (Cefdinir) 300 Mg Capsule 1 CAP PO Q12H for 5 Days, #10 CAP Fluticasone/Salmeterol (Advair 250-50 Diskus) 1 Each Disk.w.dev 1 PUFFS INH Q12H for 30 Days, #1 EA 0 Refills Prednisone (Prednisone) 10 Mg Tablet 0 PO DAILY, #42 TAB Take 6 tabs/day x2 days then 5 daily x2 days 4 daily x2 days 3 daily x2 days 2 daily x2 days 1 daily x2 days then stop. Amlodipine Besylate (Amlodipine Besylate) 5 Mg Tablet 10 MG PO DAILY for 30 Days, #60 TAB Clopidogrel Bisulfate (Clopidogrel) 75 Mg Tablet 75 MG PO DAILY for 30 Days, #60 TAB Do not stop medication unless instructed by prescriber. [hyDRALAzine tablet] () 10 MG TABLET 10 MG PO Q12H for 30 Days, #60 Losartan Potassium (Losartan Potassium) 50 Mg Tablet 100 MG PO DAILY for 30 Days, #30 TAB Continued Medications: Apixaban (Eliquis) 5 Mg (74 Tabs) Tab.ds.pk 1 TAB PO UD for 30 Days, #74 TAB 0 Refills Propafenone Hcl (Propafenone Hcl) 225 Mg Cap.er.12h 1 CAP PO Q12H for 30 Days, #60 CAP 0 Refills Rosuvastatin Calcium (Rosuvastatin Calcium) 20 Mg Tablet 1 TAB PO HS for 30 Days, #30 TAB 0 Refills Discontinued Medications: Amlodipine/Valsartan (Exforge 5-320 Mg Tablet) 1 Each Tablet 1 TAB PO DAILY for 30 Days, #30 TAB 0 Refills Metoprolol Tartrate (Metoprolol Tartrate) 25 Mg Tablet 1 TAB PO Q12H for 30 Days, #60 TAB 0 Refills Discharge Summary: History of Present Illness Bg Disla is a 74-year-old male with past medical history of COPD, CAD s/p cardiac stent, hypertension, atrial fibrillation who presented to the ED with chief complaint of progressively worsening shortness of breath x 2 days. Patient reports chest pain with coughing but denies exertional chest pain or chest pain at rest, palpitations, abdominal pain, n/v/d. Initial diagnostic findings were notable for mild leukocytosis, sinus tachycardia, and hypoxia. Patient is to be admitted for further workups and treatment. Hospital Course Diagnostic findings were notable for hypoxia off from his baseline, EKG indicating sinus tachycardia at 11bpm without ST-T abnormalities. Pertinent negative findings were negative CTA chest for pulmonary embolism, negative chest x-ray, negative procal. TTE indicated normal systolic function with LVEF of 65- 70% without significant valvular heart disease. Patient was treated with em pirical antibiotics, steroid, bronchodilators, prn supplemental oxygen. Physical assessment was notable for significantly improved adventitious lung sounds with the start of treatment. Patient did not experience further complications throughout the entire hospital stay. Patient was seen and examined on the day of discharge. On day of discharge, vss and labs unremarkable. An elevated white count is likely secondary to demargination from steroid. All labs, diagnostic workups, discharge plan discussed with patient in details during visit before discharge. All questions and concerns answered to the best of my professional knowledge. 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
== END 2024-11-01 11:30 | disposition home or self-care (01) | DRG 189 ==
LOC: ER 07:47 → ED HOLD 12:44 → ORTHO 4S 22:10
PROVIDERS: ADMIT Nurse Practitioner Family; ATTEND Nurse Practitioner Family
PROC: B32T1ZZ Computerized Tomography (CT Scan) of Left Pulmonary Artery using Low Osmolar Contrast (ICD-10-PCS; principal; 2024-10-30)
PROC: B3201ZZ Computerized Tomography (CT Scan) of Thoracic Aorta using Low Osmolar Contrast (ICD-10-PCS; 2024-10-30)
PROC: B32S1ZZ Computerized Tomography (CT Scan) of Right Pulmonary Artery using Low Osmolar Contrast (ICD-10-PCS; 2024-10-30)
DX: J96.01 Acute respiratory failure with hypoxia (principal); J44.1 Chronic obstructive pulmonary disease with (acute) exacerbation; I50.32 Chronic diastolic (congestive) heart failure; I48.91 Unspecified atrial fibrillation; I25.10 Atherosclerotic heart disease of native coronary artery without angina pectoris; I73.9 Peripheral vascular disease, unspecified; I11.0 Hypertensive heart disease with heart failure; Z88.0 Allergy status to penicillin; Z88.5 Allergy status to narcotic agent; Z95.5 Presence of coronary angioplasty implant and graft; Z79.01 Long term (current) use of anticoagulants; Z79.899 Other long term (current) drug therapy; Z87.891 Personal history of nicotine dependence
CPT/HCPCS: 36415; 71045; 71275; 80053; 83735; 83880; 84132; 84145; 84484; 85025; 85610; 85730; 87040; 87081; 93005; 93306; 94640; 94760; 96365; 96375; 99285; A7015; G0378; J0360; J0456; J0696; J2919; J7040; Q9967

== ENCOUNTER 2025-03-06 09:49 | Outpatient (CLI) | payer MEDICARE, MEDICAID ==
[~2025-03-06] VITALS: Ht 177.2 cm; Wt 90.7 kg
[~2025-03-06 09:49] MED LIST changes: +ALBU18HF2 INH; -AMLO1TAB14 PO; +CLOP75TA34 PO; +FLUT1DIS4 INH; +LOSA50TA64 PO; -METO25TA6 PO; +NOR5T PO; +ROSU20TA98 PO; +hyDRALAzine tablet PO
[2025-03-06] MEDS: albuterol 2.5 MG/3 ML nebule NEB ONE (11:09)
[2025-03-06 11:18] VITALS: PULSE 81; RESP 14
[2025-03-06 11:31] VITALS: PULSE 86; RESP 16
--- NOTE | 2025-03-07 15:56 | PROCEDURE NOTE - Respiratory ---
Procedure Note-Respiratory Providers to CC Copies To 1: RORY MCINTYRE MD; CLAIRE PINTO MD Procedure Name: Cele is a complete pulmonary function study dated March 06, 2025. Spirometry measurements: The forced vital capacity is in the lower range of normal. The FEV1 measurement is clearly reduced. The FEV1 ratio is reduced as well. All of the measured flow rates show substantial reduction. After inhaled bronchodilator was administered, the FEV1 and the flow rate measurements show significant improvement. Lung volume measurements: The total lung capacity and the functional residual capacity are both normal. Lung diffusion measurement: The DLCO measurement is normal. It is noted that the KVO measurement is in the normal range. The alveolar volume measurement is also normal. Airway resistance measurement: The airway resistance is elevated. Overall conclusion: This study is abnormal. There is evidence for moderate to severe obstructive ventilatory defect. The patient improved slightly with inhaled bronchodilator. These findings are consistent with the patient's diagnosis of smoking-related COPD. The lung diffusion is in the normal range. This patient should continue to use bronchodilator medication. Complete abstinence from cigarette smoking is recommended. We have no previous studies for comparison. JOCE GUTIERREZ MD Mar 07, 2025 15:56
== END 2025-03-06 23:59 | disposition home or self-care (01) ==
LOC: RT 09:49
PROVIDERS: ATTEND Internal Medicine Interventional Cardiology
DX: J44.9 Chronic obstructive pulmonary disease, unspecified (principal); J96.21 Acute and chronic respiratory failure with hypoxia; R00.2 Palpitations
CPT/HCPCS: 94060; 94727; 94729; 94760